=== PATIENT | male | born 1980 | race Caucasian/White ===

== ENCOUNTER 2017-06-28 02:43 | Emergency (ER) | payer OTHER ==
[~2017-06-28] VITALS: Ht 170.2 cm; Wt 104.3 kg
[2017-06-28 05:20] VITALS: BP 135/85
== END 2017-06-28 03:56 | disposition home or self-care (01) ==
LOC: ED 02:43
DX: J45.901 Unspecified asthma with (acute) exacerbation (principal); F41.0 Panic disorder [episodic paroxysmal anxiety]

== ENCOUNTER 2017-11-13 16:34 | Emergency (ER) | payer OTHER ==
[~2017-11-13] VITALS: Ht 170.2 cm; Wt 106.6 kg
[2017-11-13 16:40] VITALS: Ht 170.2 cm; Wt 106.6 kg
[2017-11-13 18:29] LABS: BASOPHIL % 0.4 % (0-2); PLATELET COUNT 263 x10^3mcL (130-400)
[2017-11-13 18:37] LABS: CALCIUM 9.1 mg/dL (8.5-10.1); CARBON DIOXIDE 28.7 mmol/L (21-32); CHLORIDE SERUM 103 mmol/L (98-107); GFR1 > 60 mL/min; GLUCOSE SERUM 89 mg/dL (74-106); POTASSIUM SERUM 3.9 mmol/L (3.5-5.1); SODIUM SERUM 139 mmol/L (136-145)
[2017-11-13 18:42] LABS: ALBUMIN 4.2 g/dL (3.4-5.0); ALKALINE PHOSPHATASE 78 U/L (46-116); ALT/SGPT 44 U/L (16-63); AMYLASE 59 U/L (25-115); AST/SGOT 22 U/L (15-37); BILIRUBIN TOTAL 0.77 mg/dL (0.20-1.00); CHOLESTEROL 160 mg/dL (<200); HDL CHOLESTEROL 43 mg/dL (40-60); LIPASE 115 IU/L (73-393)
[2017-11-13 18:51] LABS: TOTAL PROTEIN, SERUM 8.3 g/dL (6.4-8.2)
[2017-11-13 19:10] LABS: microscopic required? NO
[2017-11-13 19:15] LABS: UA SPECIFIC GRAVITY 1.015 (1.005-1.035); urine erythrocyte NEGATIVE (NEGATIVE)
[2017-11-13 19:39] LABS: AMPHETAMINE QUAL UR NONE DETECTED (NEG <=1000)
[2017-11-13 20:01] VITALS: BP 126/68
== END 2017-11-13 20:01 | disposition home or self-care (01) ==
LOC: ED 16:34
PROVIDERS: Emergency Medicine
DX: J45.909 Unspecified asthma, uncomplicated (principal); K76.0 Fatty (change of) liver, not elsewhere classified; K21.9 Gastro-esophageal reflux disease without esophagitis
CPT/HCPCS: 36415; 83880; 85378; G0480; Q0092

== ENCOUNTER 2017-11-29 23:28 | Emergency (ER) | payer OTHER ==
[~2017-11-29] VITALS: Ht 170.2 cm; Wt 127.0 kg
[2017-11-29 23:30] VITALS: Ht 170.2 cm; Wt 127.0 kg
[2017-11-30 02:15] VITALS: BP 147/104
== END 2017-11-30 02:15 | disposition home or self-care (01) ==
LOC: ED 23:28
DX: J69.0 Pneumonitis due to inhalation of food and vomit (principal); J45.909 Unspecified asthma, uncomplicated
CPT/HCPCS: J7620; Q0162

== ENCOUNTER 2017-12-26 07:28 | Emergency (ER) | payer OTHER ==
[~2017-12-26] VITALS: Ht 170.2 cm; Wt 103.9 kg
[2017-12-26 07:35] VITALS: Ht 170.2 cm; Wt 103.9 kg
[2017-12-26 08:15] LABS: BASOPHIL % 0.8 % (0-2); PLATELET COUNT 228 x10^3mcL (130-400); RED CELL DISTRIBUTION WIDTH 12.8 % (11.5-14.5)
[2017-12-26 08:41] LABS: CALCIUM 9.6 mg/dL (8.5-10.1); CARBON DIOXIDE 26.9 mmol/L (21-32); CHLORIDE SERUM 105 mmol/L (98-107); CREATININE SERUM 0.9 mg/dL (0.7-1.3); GFR1 > 60 mL/min; GLUCOSE SERUM 110 mg/dL (74-106); POTASSIUM SERUM 3.6 mmol/L (3.5-5.1); SODIUM SERUM 142 mmol/L (136-145)
[2017-12-26 08:45] LABS: ALBUMIN 3.7 g/dL (3.4-5.0); ALKALINE PHOSPHATASE 72 U/L (46-116); ALT/SGPT 42 U/L (16-63); AST/SGOT 22 U/L (15-37); BILIRUBIN TOTAL 0.64 mg/dL (0.20-1.00); CHOLESTEROL 158 mg/dL (<200); HDL CHOLESTEROL 46 mg/dL (40-60); TOTAL PROTEIN, SERUM 7.4 g/dL (6.4-8.2); URIC ACID 5.6 mg/dL (3.5-7.2)
[2017-12-26 09:37] VITALS: BP 134/77
== END 2017-12-26 09:37 | disposition home or self-care (01) ==
LOC: ED 07:28
PROVIDERS: Emergency Medicine
DX: R07.89 Other chest pain (principal); R11.0 Nausea; R06.02 Shortness of breath
CPT/HCPCS: 36415; 83880; J1885; Q0092

== ENCOUNTER 2019-01-04 23:11 | Emergency (ER) | payer BC ==
[~2019-01-04] VITALS: Ht 170.2 cm; Wt 105.7 kg
[2019-01-04 23:18] VITALS: Ht 170.2 cm; Wt 105.7 kg
[2019-01-05 02:19] VITALS: BP 153/83
== END 2019-01-05 02:19 | disposition home or self-care (01) ==
LOC: ED 23:11
DX: J18.9 Pneumonia, unspecified organism (principal); J45.909 Unspecified asthma, uncomplicated; F41.9 Anxiety disorder, unspecified; K21.9 Gastro-esophageal reflux disease without esophagitis
CPT/HCPCS: J0696; J7512; J7620

== ENCOUNTER 2019-01-07 16:14 | Emergency (ER) | payer BC ==
[~2019-01-07] VITALS: Ht 172.7 cm; Wt 103.9 kg
[2019-01-07 16:20] VITALS: Ht 172.7 cm; Wt 103.9 kg
[2019-01-07 17:38] LABS: BASOPHIL % 0.5 % (0-2); PLATELET COUNT 281 x10^3mcL (130-400); RED CELL DISTRIBUTION WIDTH 12.5 % (11.5-14.5)
[2019-01-07 17:55] LABS: CALCIUM 8.8 mg/dL (8.5-10.1); CHLORIDE SERUM 105 mmol/L (98-107); GFR1 > 60 mL/min; GLUCOSE SERUM 123 mg/dL (74-106); POTASSIUM SERUM 3.5 mmol/L (3.5-5.1); SODIUM SERUM 139 mmol/L (136-145)
[2019-01-07 17:59] LABS: ALBUMIN 3.8 g/dL (3.4-5.0); ALKALINE PHOSPHATASE 80 U/L (46-116); ALT/SGPT 41 U/L (16-63); AST/SGOT 17 U/L (15-37); BILIRUBIN TOTAL 0.52 mg/dL (0.20-1.00); TOTAL PROTEIN, SERUM 7.7 g/dL (6.4-8.2)
[2019-01-07 21:18] VITALS: BP 149/100
== END 2019-01-07 21:18 | disposition home or self-care (01) ==
LOC: ED 16:14
PROVIDERS: Emergency Medicine
DX: R06.03 Acute respiratory distress (principal); J45.909 Unspecified asthma, uncomplicated; F41.9 Anxiety disorder, unspecified; K21.9 Gastro-esophageal reflux disease without esophagitis
CPT/HCPCS: 85378; J2930; J7030; J7613; J7620; Q0092

== ENCOUNTER 2019-01-11 13:53 | Inpatient (IN) | payer BC ==
[~2019-01-11] VITALS: Ht 172.7 cm; Wt 103.4 kg
[2019-01-11 13:55] VITALS: Ht 172.7 cm; Wt 103.4 kg
[2019-01-11 14:22] LABS: BASOPHIL % 0.5 % (0-2); PLATELET COUNT 316 x10^3mcL (130-400)
[2019-01-11 14:42] LABS: CALCIUM 8.6 mg/dL (8.5-10.1); CARBON DIOXIDE 29.8 mmol/L (21-32); CHLORIDE SERUM 105 mmol/L (98-107); GFR1 > 60 mL/min; GLUCOSE SERUM 102 mg/dL (74-106); POTASSIUM SERUM 3.6 mmol/L (3.5-5.1); SODIUM SERUM 141 mmol/L (136-145)
[2019-01-11 14:47] LABS: ALBUMIN 3.6 g/dL (3.4-5.0); ALKALINE PHOSPHATASE 80 U/L (46-116); ALT/SGPT 40 U/L (16-63); AST/SGOT 14 U/L (15-37); BILIRUBIN TOTAL 0.6 mg/dL (0.20-1.00); TOTAL PROTEIN, SERUM 7.5 g/dL (6.4-8.2)
[2019-01-11] MEDS ORDERED: PROVENTIL0.09 MG/A1 IH (15:49)
[2019-01-11] MEDS ORDERED: PROAIR HFA8.5 GM IH (15:49)
[2019-01-11 17:36] VITALS: BP 139/98
[2019-01-11 21:35] VITALS: BP 144/88
[2019-01-12 06:14] VITALS: BP 132/79
[2019-01-12 06:19] LABS: PLATELET COUNT 283 x10^3mcL (130-400); RED CELL DISTRIBUTION WIDTH 12.6 % (11.5-14.5)
[2019-01-12 06:42] LABS: ALBUMIN 3.4 g/dL (3.4-5.0); ALKALINE PHOSPHATASE 72 U/L (46-116); ALT/SGPT 46 U/L (16-63); AST/SGOT 17 U/L (15-37); BILIRUBIN TOTAL 0.6 mg/dL (0.20-1.00); CALCIUM 8.5 mg/dL (8.5-10.1); CARBON DIOXIDE 26.1 mmol/L (21-32); CHLORIDE SERUM 105 mmol/L (98-107); CREATININE SERUM 0.9 mg/dL (0.7-1.3); GFR1 > 60 mL/min; GLUCOSE SERUM 142 mg/dL (74-106); MAGNESIUM 2.4 mg/dL (1.8-2.4); POTASSIUM SERUM 4.7 mmol/L (3.5-5.1); SODIUM SERUM 139 mmol/L (136-145); TOTAL PROTEIN, SERUM 7.2 g/dL (6.4-8.2)
[2019-01-12 06:57] LABS: BASOPHIL % 0 % (0-2)
[2019-01-12 07:18] VITALS: BP 106/67
[2019-01-12 10:52] VITALS: BP 106/67
[2019-01-12 10:56] VITALS: BP 127/73
== END 2019-01-12 12:42 | disposition home or self-care (01) | DRG 871 ==
LOC: ED 13:53 → DU 15:52
PROVIDERS: Specialist; ADMIT Internal Medicine Pulmonary Disease
DX: A41.9 Sepsis, unspecified organism (principal); J18.9 Pneumonia, unspecified organism; J45.902 Unspecified asthma with status asthmaticus; F41.9 Anxiety disorder, unspecified; K21.9 Gastro-esophageal reflux disease without esophagitis
CPT/HCPCS: 36600; 87804; J0171; J1644; J2920; J2930; J3475; J7030; J7613; J7644

== ENCOUNTER 2019-10-16 07:34 | Emergency (ER) | payer BC ==
[~2019-10-16] VITALS: Ht 172.7 cm; Wt 108.4 kg
[~2019-10-16 07:34] MED LIST: PROAIR HFA8.5 GM IH; PROVENTIL0.09 MG/A1 IH
[2019-10-16 07:38] VITALS: Ht 172.7 cm; Wt 108.4 kg
[2019-10-16 10:18] VITALS: BP 141/75
== END 2019-10-16 08:09 | disposition home or self-care (01) ==
LOC: ED 07:34
DX: J45.901 Unspecified asthma with (acute) exacerbation (principal); R06.03 Acute respiratory distress; K21.9 Gastro-esophageal reflux disease without esophagitis
CPT/HCPCS: J7512; J7620; Q0092